=== PATIENT | female | born 1990 | race Caucasian/White ===

== ENCOUNTER 2017-11-06 10:14 | Emergency (ER) | payer SELFPAY ==
[2017-11-06 10:59] LABS: Urine Blood 1+ (NEG); Urine Glucose NEGATIVE (NEG); Urine Protein 1+ (NEG); Urine Specific Gravity 1.015 (1.005-1.030); Urine pH 7.5 (5.0-7.0)
--- NOTE | 2017-11-06 11:22 | EDPHYS ---
Physician Documentation [facility] Name: Shayla Mosqueda Age: 27 yrs Sex: Female : 1990 Arrival Date: 11/06/2017 Time: 10:17 Bed 5 Private MD: None, None ED Physician Aleksander Pena HPI: 11/06 10:39 This 27 yrs old Female presents to ER via Ambulatory with complaints of Back kav Pain, Vomiting. 10:39 The patient presents with pain that is acute. The symptoms are located in the low back. kav Onset: The symptoms/episode began/occurred acutely. The pain radiates to the pelvis. Associated signs and symptoms: Pertinent positives: fever, vomiting, Pertinent negatives: nausea, urinary retention, weakness. The patient has not recently seen a physician. 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 - Social history:: Smoking status: Patient uses tobacco products, smokes one-half pack cigarettes per day. - Ebola Screening: : No symptoms or risks identified at this time. - Family history:: not pertinent. - Hospitalizations: : No recent hospitalization is reported. - History obtained from: friend. ROS: 10:39 Constitutional: Negative for fever, chills, and weight loss, Eyes: Negative for injury, kav pain, redness, and discharge, ENT: Negative for injury, pain, and discharge, Neck: Negative for injury, pain, and swelling, Cardiovascular: Negative for chest pain, palpitations, and edema, Respiratory: Negative for shortness of breath, cough, wheezing, and pleuritic chest pain, Abdomen/GI: Negative for abdominal pain, nausea, vomiting, diarrhea, and constipation, Back: Negative for injury and pain, MS/Extremity: Negative for injury and deformity, Skin: Negative for injury, rash, and discoloration, Neuro: Negative for headache, weakness, numbness, tingling, and seizure, Psych: Negative for depression, anxiety, suicide ideation, homicidal ideation, and hallucinations, Allergy/Immunology: Negative for hives, rash, and allergies, Endocrine: Negative for neck swelling, polydipsia, polyuria, polyphagia, and marked weight changes, Hematologic/Lymphatic: Negative for swollen nodes, abnormal bleeding, and unusual bruising. 10:39 : Positive for pelvic pain, Negative for flank pain, burning with urination, difficulty urinating, bladder incontinence, vaginal bleeding, vaginal discharge, vaginal itching, menstrual abnormality, missed period. Exam: 10:39 Constitutional: This is a well developed, well nourished patient who is awake, alert, kav and in no acute distress. Head/Face: Normocephalic, atraumatic. Eyes: Pupils equal round and reactive to light, extra-ocular motions intact. Lids and lashes normal. Conjunctiva and sclera are non-icteric and not injected. Cornea within normal limits. Periorbital areas with no swelling, redness, or edema. ENT: Nares patent. No nasal discharge, no septal abnormalities noted. Tympanic membranes are normal and external auditory canals are clear. Oropharynx with no redness, swelling, or masses, exudates, or evidence of obstruction, uvula midline. Mucous membranes moist. Neck: Trachea midline, no thyromegaly or masses palpated, and no cervical lymphadenopathy. Supple, full range of motion without nuchal rigidity, or vertebral point tenderness. No Meningismus. Chest/axilla: Normal chest wall appearance and motion. Nontender with no deformity. No lesions are appreciated. Cardiovascular: Regular rate and rhythm with a normal S1 and S2. No gallops, murmurs, or rubs. Normal PMI, no JVD. No pulse deficits. Respiratory: Lungs have equal breath sounds bilaterally, clear to auscultation and percussion. No rales, rhonchi or wheezes noted. No increased work of breathing, no retractions or nasal flaring. Abdomen/GI: Soft, non-tender, with normal bowel sounds. No distension or tympany. No guarding or rebound. No evidence of tenderness throughout. Back: No spinal tenderness. No costovertebral tenderness. Full range of motion. Skin: Warm, dry with normal turgor. Normal color with no rashes, no lesions, and no evidence of cellulitis. MS/ Extremity: Pulses equal, no cyanosis. Neurovascular intact. Full, normal range of motion. Neuro: Awake and alert, GCS 15, oriented to person, place, time, and situation. Cranial nerves II-XII grossly intact. Motor strength 5/5 in all extremities. Sensory grossly intact. Cerebellar exam normal. Normal gait. Psych: Awake, alert, with orientation to person, place and time. Behavior, mood, and affect are within normal limits. 10:39 : CVA tenderness, is absent. Vital Signs: 10:23 BP 120 / 79; Pulse 65; Resp 16 S; Temp 98.0(TE); Pulse Ox 98% on R/A; Weight 56.7 kg aa5 (R); Height 5 ft. 0 in. (152.40 cm) (R); Pain 7/10; 11:15 BP 119 / 80; Pulse 64; Resp 16; Pulse Ox 98% ; jl7 10:23 Body Mass Index 24.41 (56.70 kg, 152.40 cm) aa5 MDM: 10:34 Patient medically screened. kav 11:03 Data reviewed: vital signs, nurses notes, lab test result(s), urinalysis, hematuria. [facility] 11/06 10:55 Order name: Urine Dipstick--Ancillary (enter results); Complete Time: 11:02 ag 11/06 11:03 Interpretation: UBLD 1+; UPH 7.5; UPROT 1+. ka 11/06 10:55 Order name: Urine --Ancillary (enter results); Complete Time: 11:02 ag 11/06 10:38 Order name: Urine Dipstick-Ancillary (obtain specimen); Complete Time: 10:54 kav 11/06 10:38 Order name: Urine Test (obtain specimen); Complete Time: 10:54 kav Administered Medications: No medications were administered Disposition: 12:17 Co-signature as Attending Physician, Aleksander Pena MD I agree with the assessment and kdr plan of care. Disposition: 11/06/17 11:06 Discharged to Home. Impression: Urinary tract infection, site not specified. - Condition is Stable. - Prescriptions for Flomax 0.4 mg Oral Capsule, Sust. Release 24 hr - take 1 capsule by ORAL route once daily 1/2 hour following the same meal each day; 7 capsule. Bactrim DS 800- 160 mg Oral Tablet - take 1 tablet by ORAL route every 12 hours for 10 days; 20 tablet. - Medication Reconciliation Form, Thank You Letter, Antibiotic Education, Prescription Opioid Use form. - Follow up: Private Physician; When: 5 - 6 days; Reason: If symptoms return, Recheck today's complaints, Continuance of care, Re-evaluation by your physician. - Problem is an acute exacerbation. - Symptoms are unchanged. Signatures: Dispatcher [employer] EDMS Aleksander Pena MD MD kdr Vern, Katherine, STERILE PROCESSING TECH STERILE PROCESSING TECH kaStephanie Cid, RN RN aa5 Shae Weiner RN RN jl7 Corrections: (The following items were deleted from the chart) 11:02 11:02 Within normal limits. kav kav 11:03 11:03 Normal except: UBLD 1+; UPH 7.5; UPROT 1+. kav kav 11:21 11:06 11/06/2017 11:06 Discharged to Home. Impression: Urinary tract infection, site jl7 not specified. Condition is Stable. Forms are Medication Reconciliation Form, Thank You Letter, Antibiotic Education, Prescription Opioid Use. Follow up: Private Physician; When: 5 - 6 days; Reason: If symptoms return, Recheck today's complaints, Continuance of care, Re-evaluation by your physician. Problem is an acute exacerbation. Symptoms are unchanged. kav
--- NOTE | 2017-11-06 11:22 | ER ---
Nurse's Notes [facility] Name: Shayla Mosquead Age: 27 yrs Sex: Female : 1990 Arrival Date: 11/06/2017 Time: 10:17 Bed 5 Private MD: None, None Diagnosis: Urinary tract infection, site not specified Presentation: 11/06 10:22 Presenting complaint: Patient states: "I think I have a UTI". Pt reports urinary aa5 frequency and R lower back pain with vomiting since yesterday. Transition of care: patient was not received from another setting of care. Onset of symptoms was October 2017. Risk Assessment: Do you want to hurt yourself or someone else? Patient reports no desire to harm self or others. Initial Sepsis Screen: Does the patient meet any 2 criteria? No. Patient's initial sepsis screen is negative. Does the patient have a suspected source of infection? No. Patient's initial sepsis screen is negative. Care prior to arrival: None. 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 - Social history:: Smoking status: Patient uses tobacco products, smokes one-half pack cigarettes per day. - Ebola Screening: : No symptoms or risks identified at this time. - Family history:: not pertinent. - Hospitalizations: : No recent hospitalization is reported. - History obtained from: friend. Screenin:54 Abuse screen: Denies threats or abuse. Denies injuries from another. Nutritional jl7 screening: No deficits noted. Tuberculosis screening: No symptoms or risk factors identified. Fall Risk None identified. Assessment: 10:54 General: Appears in no apparent distress. uncomfortable, Behavior is calm, cooperative, jl7 appropriate for age. Pain: Complains of pain in suprapubic area and right lower quadrant Pain radiates to posterior aspect of right lateral abdomen Pain currently is 7 out of 10 on a pain scale. Pain began 1 day ago. Is continuous. Neuro: Level of Consciousness is awake, alert, obeys commands, Oriented to person, place, time, situation. Cardiovascular: Patient's skin is warm and dry. Respiratory: Airway is patent Respiratory effort is even, unlabored, Respiratory pattern is regular, symmetrical. GI: Abd is soft X 4 quads Abdomen is tender to palpation in suprapubic area and right lower quadrant Reports nausea, vomiting, Patient currently denies constipation, diarrhea. : Reports urinary frequency, Denies burning with urination. EENT: No signs and/or symptoms were reported regarding the EENT system. Derm: Skin is pink, warm \\T\\ dry. Musculoskeletal: No signs and/or symptoms reported regarding the musculoskeletal system. Vital Signs: 10:23 BP 120 / 79; Pulse 65; Resp 16 S; Temp 98.0(TE); Pulse Ox 98% on R/A; Weight 56.7 kg aa5 (R); Height 5 ft. 0 in. (152.40 cm) (R); Pain 7/10; 11:15 BP 119 / 80; Pulse 64; Resp 16; Pulse Ox 98% ; jl7 10:23 Body Mass Index 24.41 (56.70 kg, 152.40 cm) aa5 ED Course: 10:17 Patient arrived in ED. mr 10:17 None, None is Private Physician. mr 10:23 Triage completed. aa5 10:23 Arm band placed on. aa5 10:33 Katrin Garza FNP is PHCP. kav 10:46 Shae Weiner, RN is Primary Nurse. jl7 10:54 Patient has correct armband on for positive identification. Bed in low position. Call jl7 light in reach. Side rails up X 1. Pulse ox on. NIBP on. 11:07 Katrin Garza FNP is PHCP. kav 11:07 Aleksander Pena MD is Attending Physician. kav 11:20 No provider procedures requiring assistance completed. Patient did not have IV access jl7 during this emergency room visit. Administered Medications: No medications were administered Outcome: 11:06 Discharge ordered by . kav 11:20 Discharged to home ambulatory. jl7 11:20 Condition: stable 11:20 Discharge instructions given to patient, Instructed on discharge instructions, follow up and referral plans. medication usage, Demonstrated understanding of instructions, follow-up care, medications, Prescriptions given X 2. 11:21 Patient left the ED. jl7 Signatures: Katrin Garza, COUNTY COURT JUDGE COUNTY COURT JUDGE Katelyn Vaca mr Stephanie Mcgovern, RN RN aa5 Shae Weiner RN RN jl7
== END 2017-11-06 11:21 | disposition home or self-care (01) ==
LOC: ER 10:14
DX: N39.0 Urinary tract infection, site not specified (principal); F17.210 Nicotine dependence, cigarettes, uncomplicated
CPT/HCPCS: 81003; 81025; 99283